=== PATIENT | female | born 1960 | race Caucasian/White ===

== ENCOUNTER 2016-12-04 16:29 | Inpatient (IN) | payer MEDICARE, MEDICAID ==
[~2016-12-04] VITALS: Ht 157.4 cm; Wt 88.0 kg
--- NOTE | ~2016-12-04 | CON ---
[place], [place] REPORT OF CONSULTATION NAME: SUHAIL LEIGH UNIT #: [id number] ROOM: 512 DOCTOR: OBINNA PINO MD BIRTHDATE: [birth year] DOS: 12/05/2016 HISTORY OF PRESENT ILLNESS: This is a 56-year-old -[place] woman with a history of morbid obesity; essential hypertension, but has not taken any medications; depression; Kraft's palsy with complete recovery; osteoarthritis; allegedly mitral valve prolapse, however, an echo read by Dr. Pina did not see this abnormality; and ovarian cancer. She has never had a stroke, heart attack, heart failure, COPD or GI bleeding. She has had bilateral knee replacement, cochlear implant, D and C and later total hysterectomy. She smokes about a pack of cigarettes per day. No alcohol. She is and lives with her . She came to the hospital yesterday because of tingling in her arms and all of her fingers. She also had tingling and numbness of the lips, but not of the tongue. Tongue did not feel swollen. She had no tingling in the toes; however, she saw floaters in front of her eyes, head felt light and she had difficulty breathing and also had some vague chest pain. These symptoms started while she was reading for her exam and she felt rather stressed out while reading the books. She has never had any PND, orthopnea or swelling of the lower extremities or exertional pain previously. HOME MEDICATIONS: Albuterol aerosol treatments, fluticasone nasal spray, omeprazole 40 daily, risperidone 15 mg b.i.d. ropinirole/Requip 4 mg b.i.d., simvastatin 40 daily, trazodone 100 mg at bedtime, vilazodone 40 mg daily, and cetirizine 10 mg daily. PHYSICAL EXAMINATION: GENERAL: This is a patient who is moderately obese. She is very pleasant, alert. She is very comfortable. She does not seem to be anxious. There is no thyromegaly or finger clubbing. She is not jaundiced. VITAL SIGNS: Temperature is normal. Pulse is 76 and regular, blood pressure 140/57. NECK: Normal JVP. No bruit in the neck. HEART: There is no cardiomegaly. No murmurs are present. EXTREMITIES: Good pedal pulses and no edema in the lower extremities. RESPIRATORY SYSTEM: She is not tachypneic. RESPIRATORY: Breath sounds are mildly diminished with no adventitious sounds. ABDOMEN: Rather large and supple. DIAGNOSTIC STUDIES: An ECG demonstrated normal sinus rhythm at 71 beats per minute and a nonspecific T wave in the anterior chest leads. Lab is unremarkable. Hemoglobin 13.7 g/dL, normal electrolytes and normal renal function. Troponin was normal, total CK 58. I suspected a hypoventilation syndrome due to acute stress induced by preparation for examination. I had her hyperventilated for a minute or so and her symptoms in the arms and fingers got worse i.e., worsening of tingling and she started seeing floaters in front of her eyes and lips became ____ more numb. [place], [place] REPORT OF CONSULTATION NAME: SUHAIL LEIGH UNIT #: [id number] ROOM: 512 DOCTOR: OBINNA PINO MD BIRTHDATE: [birth year] IMPRESSION: This patient had acute anxiety/stress caused by preparation for her final exam. She had developed more symptoms that one sees with hyperventilation. I do not recommend any further cardiac workup. I reassured her. I think she probably should start using a paper bag to breathe into when she has symptoms. I thank you on behalf of Dr. Pina for this consult. OBINNA PINO MD CM:CONSTR:REPORT OF CONSULTATION [id number] 12/06/16 0555 interface
[~2016-12-04 16:29] MED LIST: ALBUTEROL2.5 MG/0.5 INH; AMOXIL500 MG PO; ANAPROX DS550 MG PO; ANTIVERT/2525 MG PO; CARAFATE1 G1 PO; ESTRADIOL0.05 MG/24 TD; ETODOLAC400 MG PO; FLEXERIL10 MG PO; FLUTICASON0.05 MG/AC NAS; HYDROCODONE BIT1 T11 PO; KLONOPIN1 MG PO; LEXAPRO10 MG PO; MELOXICAM15 MG PO; PERCOCET 325 MG1 TA2 PO; PERCOCET 325 MG1 TA5 PO; PRILOSEC; PRILOSEC40 MG PO; RANITIDINE HCL300 M2 PO; REQUIP0.25 MG PO; RISPERIDONE0.5 MG PO; ROPINIROLE HY0.25 MG PO; SIMVASTATIN40 MG PO; TOBREX OPHTH S2.5 ML OPH; TRAMADOL HCL50 MG PO; TRAMADOL50 MG PO; TRAZODONE100 MG PO; VICODIN ES 7501 TAB PO; VIIBRYD40 PO; WELLBUTRIN SR150 MG PO; [UNRECOGNIZED DRUG - REMARK]
[2016-12-04 16:38] VITALS: BP 144/82
[2016-12-04 17:20] LABS: BASO % 0.4 % (0.0-1.0); EOS # 0.1 10*3/uL (0.0-0.4); EOS % 1.1 % (1.0-4.0); HEMATOCRIT 41.3 % (37.0-47.0); HEMOGLOBIN 14.3 g/dl (12.0-16.0); LYMPH # 2.6 10*3/uL (1.3-4.4); LYMPH % 37.3 % (27.0-41.0); MEAN CORPUSCULAR HGB 31.2 pg (27.0-31.0); MEAN CORPUSCULAR HGB CONC 34.6 g/dl (33.0-37.0); MEAN PLATELET VOLUME 10.1 fl (9.6-12.3); MONO # 0.4 10*3/uL (0.1-1.0); MONO % 5.6 % (3.0-9.0); NEUT # 3.9 10*3/uL (2.3-7.9); NEUT % 55.5 % (47.0-73.0); PLATELET COUNT AUTOMATED 265 10*3/uL (130-400); RED BLOOD COUNT 4.59 10*6/uL (4.10-5.10); RED CELL DISTRI WIDTH 12.8 % (0-14.5)
[2016-12-04 17:28] LABS: PROTHROMBIN TIME 10.5 SECONDS (9.0-12.4)
[2016-12-04 17:33] LABS: BILIRUBIN NEGATIVE (NEGATIVE); BLOOD NEGATIVE (NEGATIVE); CLARITY CLEAR (CLEAR); COLOR YELLOW (YELLOW); GLUCOSE NEGATIVE (NEGATIVE); KETONE NEGATIVE (NEGATIVE); LEUKO ESTERASE NEGATIVE (NEGATIVE); NITRITE NEGATIVE (NEGATIVE); PH 6.5 (5.0-9.0); PROTEIN NEGATIVE (NEGATIVE); SPECIFIC GRAVITY <= 1.005 (1.005-1.030); UROBILINOGEN 0.2 E.U./dl (0.2-1.0)
[2016-12-04 17:37] LABS: ALKALINE PHOSPHATASE 79 U/L (45-117); BILIRUBIN, TOTAL 0.4 mg/dl (0.2-1.0); BUN 8 mg/dl (7-24); CARBON DIOXIDE 29 mmol/L (21-32); CHLORIDE 107 mmol/L (98-107); CKMB 1.6 ng/ml (0.5-3.6); CPK 76 U/L (26-192); EST GLOM FILT AFRICAN AMERICAN > 60 ml/min; GLUCOSE 87 mg/dL (65-99); LDH 203 U/L (84-246); MAGNESIUM 2.1 mg/dL (1.5-2.1); POTASSIUM 3.1 mmol/L (3.5-5.1); SGOT/AST 17 IU/L (3-35); SGPT/ALT 25 U/L (12-78); SODIUM 142 mmol/L (136-145); TOTAL PROTEIN 7.6 gm/dL (6.4-8.2); TROPONIN I < 0.015 ng/ml (<0.045)
[2016-12-04 17:40] LABS: RBC 0-2 rbc/hpf (0-2); URINE REFLEX COMMENT NO (NO); WBC 0-2 wbc/hpf (0-5)
[2016-12-04 19:10] VITALS: BP 134/80
[2016-12-04 21:00] VITALS: BP 152/74
[2016-12-04] MEDS ORDERED: ALLERGY RELIEF10 M3 PO (21:20)
[2016-12-04] MEDS ORDERED: REQUIP0.25 M1 PO ×2 (22:44→22:46)
[2016-12-04] MEDS ORDERED: RISPERIDONE0.5 MG PO (22:47)
[2016-12-04] MEDS ORDERED: REQUIP4 MG PO (22:48)
[2016-12-05] VITALS: BP 129/75
[2016-12-05 00:47] LABS: CKMB 1.4 ng/ml (0.5-3.6); CPK 67 U/L (26-192)
[2016-12-05 00:48] LABS: TROPONIN I < 0.015 ng/ml (<0.045)
[2016-12-05 05:46] LABS: BUN 13 mg/dl (7-24); CARBON DIOXIDE 27 mmol/L (21-32); CHLORIDE 108 mmol/L (98-107); EST GLOM FILT AFRICAN AMERICAN > 60 ml/min; GLUCOSE 104 mg/dL (65-99); MAGNESIUM 2.1 mg/dL (1.5-2.1); POTASSIUM 3.6 mmol/L (3.5-5.1); SODIUM 145 mmol/L (136-145)
[2016-12-05 05:50] LABS: CHOLESTEROL 136 mg/dL (<200); FREE T4 1.37 ng/dl (0.76-1.46); HDL CHOLESTEROL 42 mg/dl (40-60); LDL CHOLESTEROL 73 mg/dL (9-159); PHOSPHOROUS 4.2 mg/dL (2.5-4.9); TRIGLYCERIDES 103 mg/dl (<150); VLDL CHOLESTEROL 21 mg/dL (6-40)
[2016-12-05 05:50] LABS: CKMB 1.1 ng/ml (0.5-3.6); CPK 58 U/L (26-192)
[2016-12-05 05:52] LABS: TROPONIN I < 0.015 ng/ml (<0.045)
[2016-12-05 05:57] LABS: THYROID STIM HORMONE (HS) 0.525 uIU/ml (0.358-4.75)
[2016-12-05 05:58] LABS: BASO % 0.5 % (0.0-1.0); EOS # 0.2 10*3/uL (0.0-0.4); EOS % 2.6 % (1.0-4.0); HEMATOCRIT 40.1 % (37.0-47.0); HEMOGLOBIN 13.7 g/dl (12.0-16.0); LYMPH # 2.3 10*3/uL (1.3-4.4); LYMPH % 27.1 % (27.0-41.0); MEAN CELL VOLUME 91.8 fl (81.0-99.0); MEAN CORPUSCULAR HGB 31.4 pg (27.0-31.0); MEAN CORPUSCULAR HGB CONC 34.2 g/dl (33.0-37.0); MEAN PLATELET VOLUME 10.2 fl (9.6-12.3); MONO # 0.5 10*3/uL (0.1-1.0); MONO % 5.4 % (3.0-9.0); NEUT # 5.4 10*3/uL (2.3-7.9); NEUT % 64.2 % (47.0-73.0); PLATELET COUNT AUTOMATED 272 10*3/uL (130-400); RED BLOOD COUNT 4.37 10*6/uL (4.10-5.10); RED CELL DISTRI WIDTH 12.9 % (0-14.5); WHITE BLOOD COUNT 8.4 10*3/uL (4.8-10.8)
[2016-12-05 06:00] LABS: HEMOGLOBIN A1c 5.7 % (4.8-5.6)
[2016-12-05 08:00] VITALS: BP 130/64
[2016-12-05 12:00] VITALS: BP 142/74
[2016-12-05 16:00] VITALS: BP 140/57
[2016-12-05 20:00] VITALS: BP 141/61
[2016-12-06] VITALS: BP 141/68
[2016-12-06 08:00] VITALS: BP 136/76
[2016-12-06] MEDS ORDERED: D-1000 185 MG-11 TAB PO (11:00)
== END 2016-12-06 13:18 | disposition home or self-care (01) | DRG 880 ==
LOC: ED 16:29 → EDHOLD 20:04 → 5E 20:04
PROVIDERS: Physician Assistant; Student in an Organized Health Care Education/Training Program
DX: F41.9 Anxiety disorder, unspecified (principal); I10 Essential (primary) hypertension; E87.6 Hypokalemia; F17.200 Nicotine dependence, unspecified, uncomplicated; E78.5 Hyperlipidemia, unspecified; I34.1 Nonrheumatic mitral (valve) prolapse; M19.90 Unspecified osteoarthritis, unspecified site; Z96.653 Presence of artificial knee joint, bilateral; F32.9 Major depressive disorder, single episode, unspecified; Z71.6 Tobacco abuse counseling; Z90.710 Acquired absence of both cervix and uterus; Z80.8 Family history of malignant neoplasm of other organs or systems; Z84.89 Family history of other specified conditions; Z79.51 Long term (current) use of inhaled steroids; Z79.899 Other long term (current) drug therapy; Z79.1 Long term (current) use of non-steroidal anti-inflammatories (NSAID)

== ENCOUNTER → 2017-03-07 | Outpatient (CLI) | payer MEDICARE, MEDICAID ==
[~2017-03-07] MED LIST changes: +ALLERGY RELIEF10 M3 PO; +D-1000 185 MG-11 TAB PO; +REQUIP0.25 M1 PO; +REQUIP4 MG PO
== END | disposition home or self-care (01) ==
LOC: MAMMO 10:48
DX: Z12.31 Encounter for screening mammogram for malignant neoplasm of breast (principal)

== ENCOUNTER → 2017-05-07 | Outpatient (CLI) | payer MEDICARE, MEDICAID | END | disposition home or self-care (01) | LOC: LAB 15:59 | DX: D64.9 Anemia, unspecified (principal); R53.83 Other fatigue ==

== ENCOUNTER → 2017-11-05 | Outpatient (CLI) | payer MEDICARE, MEDICAID | END | disposition home or self-care (01) | LOC: US 15:37 | DX: R10.30 Lower abdominal pain, unspecified (principal); Z85.43 Personal history of malignant neoplasm of ovary ==

== ENCOUNTER 2018-01-30 13:58 | Emergency (ER) | payer MEDICARE, MEDICAID ==
[~2018-01-30] VITALS: Ht 160 cm; Wt 94.3 kg
[2018-01-30] MEDS ORDERED: IRON325 M1 PO (14:10)
[2018-01-30] MEDS ORDERED: VRAYLAR3 MG PO (14:11)
== END 2018-01-30 15:00 | disposition home or self-care (01) ==
LOC: ED 13:58
DX: T15.11XA Foreign body in conjunctival sac, right eye, initial encounter (principal); E78.5 Hyperlipidemia, unspecified; M19.90 Unspecified osteoarthritis, unspecified site; F17.200 Nicotine dependence, unspecified, uncomplicated; F12.90 Cannabis use, unspecified, uncomplicated; Z96.653 Presence of artificial knee joint, bilateral; Z90.710 Acquired absence of both cervix and uterus; Z98.890 Other specified postprocedural states; Z98.51 Tubal ligation status; Z79.899 Other long term (current) drug therapy; X58.XXXA Exposure to other specified factors, initial encounter; Y93.89 Activity, other specified; Y92.89 Other specified places as the place of occurrence of the external cause; Y99.9 Unspecified external cause status

== ENCOUNTER → 2018-03-17 | Outpatient (CLI) | payer MEDICARE, MEDICAID ==
[~2018-03-17] MED LIST changes: +IRON325 M1 PO; +VRAYLAR3 MG PO
== END ==
LOC: US 12:30
DX: C57.8 Malignant neoplasm of overlapping sites of female genital organs (principal); R10.32 Left lower quadrant pain; Z90.710 Acquired absence of both cervix and uterus; Z90.5 Acquired absence of kidney

== ENCOUNTER 2018-10-20 13:06 | Emergency (ER) | payer MEDICARE, MEDICAID ==
[~2018-10-20] VITALS: Ht 157.4 cm; Wt 92.1 kg
[~2018-10-20 13:06] MED LIST changes: +CILOXAN 5 ML5 ML OPH; +OMNICEF300 MG PO
[2018-10-20 13:46] LABS: BASO # 0.1 10*3/uL (0.0-0.1); BASO % 0.7 % (0.0-1.0); EOS # 0.1 10*3/uL (0.0-0.4); EOS % 1.2 % (1.0-4.0); HEMOGLOBIN 14.1 g/dl (12.0-16.0); LYMPH # 2.1 10*3/uL (1.3-4.4); LYMPH % 29.3 % (27.0-41.0); MEAN CELL VOLUME 90.7 fl (81.0-99.0); MEAN CORPUSCULAR HGB CONC 35.3 g/dl (33.0-37.0); MEAN PLATELET VOLUME 10.1 fl (9.6-12.3); MONO # 0.4 10*3/uL (0.1-1.0); MONO % 5.5 % (3.0-9.0); NEUT # 4.6 10*3/uL (2.3-7.9); PLATELET COUNT AUTOMATED 230 10*3/uL (130-400); RED BLOOD COUNT 4.41 10*6/uL (4.10-5.10); RED CELL DISTRI WIDTH 12.3 % (0-14.5); WHITE BLOOD COUNT 7.2 10*3/uL (4.8-10.8)
[2018-10-20 14:15] LABS: ALBUMIN 3.9 gm/dl (3.1-4.5); ALKALINE PHOSPHATASE 80 U/L (45-117); BUN 13 mg/dl (7-24); CHLORIDE 107 mmol/L (98-107); CREATININE 0.79 mg/dL (0.55-1.02); POTASSIUM 3.3 mmol/L (3.5-5.1); SGOT/AST 27 IU/L (3-35); SGPT/ALT 38 U/L (12-78); SODIUM 142 mmol/L (136-145); TOTAL PROTEIN 7.5 gm/dL (6.4-8.2)
[2018-10-20] MEDS ORDERED: PREDNISONE50 MG PO (15:21)
[2018-10-20] MEDS ORDERED: ZITHROMAX250 MG PO (15:21)
== END 2018-10-20 15:30 | disposition home or self-care (01) ==
LOC: ED 13:06
PROVIDERS: Nurse Practitioner Family
DX: J20.9 Acute bronchitis, unspecified (principal); F17.200 Nicotine dependence, unspecified, uncomplicated; Z79.899 Other long term (current) drug therapy; Z90.710 Acquired absence of both cervix and uterus

== ENCOUNTER → 2019-01-10 | Outpatient (CLI) | payer MEDICARE, MEDICAID ==
[~2019-01-10] MED LIST changes: +MEDROL DOSEPAK4 MG PO; +PREDNISONE50 MG PO; +ZITHROMAX250 MG PO
[2019-01-10 15:31] LABS: BASO % 0.4 % (0.0-1.0); EOS # 0.1 10*3/uL (0.0-0.4); EOS % 1.6 % (1.0-4.0); HEMATOCRIT 44.4 % (37.0-47.0); HEMOGLOBIN 14.8 g/dl (12.0-16.0); LYMPH # 2.2 10*3/uL (1.3-4.4); LYMPH % 30.7 % (27.0-41.0); MEAN CELL VOLUME 96.7 fl (81.0-99.0); MEAN CORPUSCULAR HGB 32.2 pg (27.0-31.0); MEAN CORPUSCULAR HGB CONC 33.3 g/dl (33.0-37.0); MEAN PLATELET VOLUME 10.3 fl (9.6-12.3); MONO # 0.3 10*3/uL (0.1-1.0); MONO % 4.1 % (3.0-9.0); NEUT # 4.4 10*3/uL (2.3-7.9); NEUT % 63.1 % (47.0-73.0); PLATELET COUNT AUTOMATED 250 10*3/uL (130-400); RED BLOOD COUNT 4.59 10*6/uL (4.10-5.10); RED CELL DISTRI WIDTH 12.5 % (0-14.5)
[2019-01-10 16:00] LABS: ALBUMIN 3.8 gm/dl (3.1-4.5); ALKALINE PHOSPHATASE 84 U/L (45-117); BUN 13 mg/dl (7-24); CHLORIDE 107 mmol/L (98-107); CHOLESTEROL 127 mg/dL (<200); HDL CHOLESTEROL 36 mg/dl (40-60); LDL CHOLESTEROL 59 mg/dL (9-159); SGOT/AST 19 IU/L (3-35); SGPT/ALT 33 U/L (12-78); SODIUM 143 mmol/L (136-145); TOTAL PROTEIN 7.5 gm/dL (6.4-8.2); TRIGLYCERIDES 162 mg/dl (<150); VLDL CHOLESTEROL 32 mg/dL (6-40)
[2019-01-10 16:07] LABS: THYROID STIM HORMONE (HS) 0.482 uIU/ml (0.358-4.75)
== END | disposition home or self-care (01) ==
LOC: LAB 14:34
PROVIDERS: Family Medicine
DX: E78.00 Pure hypercholesterolemia, unspecified (principal); F39 Unspecified mood [affective] disorder; R03.0 Elevated blood-pressure reading, without diagnosis of hypertension

== ENCOUNTER → 2019-01-14 | Outpatient (CLI) | payer MEDICARE, MEDICAID | END | disposition home or self-care (01) | LOC: US 09:48 | DX: K76.0 Fatty (change of) liver, not elsewhere classified (principal) ==

== ENCOUNTER 2019-03-18 15:22 | Emergency (ER) | payer MEDICARE, MEDICAID ==
[~2019-03-18] VITALS: Ht 157.4 cm; Wt 92.5 kg
[~2019-03-18 15:22] MED LIST changes: -MEDROL DOSEPAK4 MG PO
[2019-03-18 17:43] LABS: BILIRUBIN NEGATIVE (NEGATIVE); BLOOD NEGATIVE (NEGATIVE); CLARITY CLEAR (CLEAR); COLOR YELLOW (YELLOW); GLUCOSE NEGATIVE (NEGATIVE); KETONE NEGATIVE (NEGATIVE); LEUKO ESTERASE NEGATIVE (NEGATIVE); NITRITE NEGATIVE (NEGATIVE); UROBILINOGEN 0.2 E.U./dl (0.2-1.0)
[2019-03-18 18:19] LABS: BACTERIA 1+
[2019-03-18] MEDS ORDERED: MEDROL DOSEPAK4 MG PO (18:34)
== END 2019-03-18 18:45 | disposition home or self-care (01) ==
LOC: ED 15:22
PROVIDERS: Physician Assistant
DX: M54.16 Radiculopathy, lumbar region (principal); R30.0 Dysuria; H57.89 Other specified disorders of eye and adnexa; K21.9 Gastro-esophageal reflux disease without esophagitis; F17.200 Nicotine dependence, unspecified, uncomplicated; Z79.899 Other long term (current) drug therapy; Z90.710 Acquired absence of both cervix and uterus

== ENCOUNTER → 2019-04-14 | Outpatient (CLI) | payer MEDICARE, MEDICAID ==
[~2019-04-14] MED LIST changes: +MEDROL DOSEPAK4 MG PO
== END | disposition home or self-care (01) ==
LOC: LAB 12:57
DX: M43.17 Spondylolisthesis, lumbosacral region (principal); R73.9 Hyperglycemia, unspecified; M51.27 Other intervertebral disc displacement, lumbosacral region

== ENCOUNTER → 2019-06-09 | Outpatient (CLI) | payer MEDICARE, MEDICAID | END | disposition home or self-care (01) | LOC: D 14:01 | DX: K76.0 Fatty (change of) liver, not elsewhere classified (principal); K21.0 Gastro-esophageal reflux disease with esophagitis; E78.6 Lipoprotein deficiency ==

== ENCOUNTER 2019-08-21 17:00 | Emergency (ER) | payer MEDICARE, MEDICAID ==
[~2019-08-21] VITALS: Ht 157.4 cm; Wt 90.7 kg
[2019-08-21] MEDS ORDERED: ZITHROMAX250 MG PO (18:42)
[2019-08-21] MEDS ORDERED: PREDNISONE50 MG PO (18:42)
== END 2019-08-21 18:42 | disposition home or self-care (01) ==
LOC: ED 17:00
DX: J20.9 Acute bronchitis, unspecified (principal); H92.03 Otalgia, bilateral; E78.00 Pure hypercholesterolemia, unspecified; F17.200 Nicotine dependence, unspecified, uncomplicated; Z79.899 Other long term (current) drug therapy

== ENCOUNTER → 2019-10-15 | Outpatient (CLI) | payer MEDICARE, MEDICAID | END | disposition home or self-care (01) | LOC: RAD 12:05 | DX: M19.011 Primary osteoarthritis, right shoulder (principal) ==

== ENCOUNTER → 2020-02-04 | Outpatient (CLI) | payer MEDICARE, MEDICAID ==
[2020-02-04 13:32] LABS: BILIRUBIN NEGATIVE (NEGATIVE); BLOOD NEGATIVE (NEGATIVE); CLARITY CLEAR (CLEAR); COLOR YELLOW (YELLOW); GLUCOSE NEGATIVE (NEGATIVE); KETONE NEGATIVE (NEGATIVE)
[2020-02-04 13:33] LABS: LEUKO ESTERASE NEGATIVE (NEGATIVE); NITRITE NEGATIVE (NEGATIVE); RBC 0-2 rbc/hpf (0-2); UROBILINOGEN 0.2 E.U./dl (0.2-1.0); WBC 0-2 wbc/hpf (0-5)
== END | disposition home or self-care (01) ==
LOC: LAB 12:34
PROVIDERS: Family Medicine
DX: N30.00 Acute cystitis without hematuria (principal); M25.551 Pain in right hip

== ENCOUNTER → 2020-05-09 | Outpatient (CLI) | payer MEDICARE, MEDICAID ==
[~2020-05-09] MED LIST changes: +DOXEPIN25 MG PO; +PROTONIX40 MG PO
== END | disposition home or self-care (01) ==
LOC: COVID19 05-06 00:22
PROVIDERS: ATTEND Internal Medicine Gastroenterology
DX: Z20.828 Contact with and (suspected) exposure to other viral communicable diseases (principal)

== ENCOUNTER → 2020-05-13 | Day surgery (SDC) | payer MEDICARE, MEDICAID ==
[~2020-05-13] VITALS: Ht 157.4 cm; Wt 89.4 kg
[2020-05-13 07:36] VITALS: BP 145/66
[2020-05-13 08:41] VITALS: BP 134/70
[2020-05-13 08:56] VITALS: BP 129/72
[2020-05-13 09:11] VITALS: BP 130/68
== END | disposition home or self-care (01) ==
LOC: SDC 05-09 12:30
PROVIDERS: ATTEND Internal Medicine Gastroenterology
DX: Z12.11 Encounter for screening for malignant neoplasm of colon (principal); J44.9 Chronic obstructive pulmonary disease, unspecified; K63.5 Polyp of colon; F41.9 Anxiety disorder, unspecified; F32.9 Major depressive disorder, single episode, unspecified; K30 Functional dyspepsia; K21.9 Gastro-esophageal reflux disease without esophagitis; I10 Essential (primary) hypertension; G47.30 Sleep apnea, unspecified; E78.00 Pure hypercholesterolemia, unspecified; K64.8 Other hemorrhoids; E66.9 Obesity, unspecified; Z68.36 Body mass index [BMI] 36.0-36.9, adult; Z87.891 Personal history of nicotine dependence; Z79.899 Other long term (current) drug therapy; Z83.3 Family history of diabetes mellitus; Z82.49 Family history of ischemic heart disease and other diseases of the circulatory system

== ENCOUNTER → 2020-06-02 | Outpatient (CLI) | payer MEDICARE, MEDICAID ==
[2020-06-02 13:55] LABS: BASO % 0.4 % (0.0-1.0); EOS # 0.1 10*3/uL (0.0-0.4); EOS % 0.8 % (1.0-4.0); HEMATOCRIT 41.7 % (37.0-47.0); LYMPH # 2.6 10*3/uL (1.3-4.4); LYMPH % 36.3 % (27.0-41.0); MEAN CELL VOLUME 95.9 fl (81.0-99.0); MEAN CORPUSCULAR HGB 31.3 pg (27.0-31.0); MEAN CORPUSCULAR HGB CONC 32.6 g/dl (33.0-37.0); MEAN PLATELET VOLUME 10.9 fl (9.6-12.3); MONO # 0.5 10*3/uL (0.1-1.0); MONO % 6.8 % (3.0-9.0); NEUT % 55.6 % (47.0-73.0); PLATELET COUNT AUTOMATED 274 10*3/uL (130-400); RED BLOOD COUNT 4.35 10*6/uL (4.10-5.10); RED CELL DISTRI WIDTH 12.6 % (0-14.5); WHITE BLOOD COUNT 7.2 10*3/uL (4.8-10.8)
[2020-06-02 14:22] LABS: ALBUMIN 3.6 gm/dl (3.1-4.5); ALKALINE PHOSPHATASE 63 U/L (45-117); BUN 12 mg/dl (7-24); CHLORIDE 109 mmol/L (98-107); CHOLESTEROL 140 mg/dL (<200); CREATININE 0.92 mg/dL (0.55-1.02); HDL CHOLESTEROL 40 mg/dl (40-60); LDL CHOLESTEROL 72 mg/dL (9-159); POTASSIUM 4.6 mmol/L (3.5-5.1); SGOT/AST 13 IU/L (3-35); SGPT/ALT 17 U/L (12-78); SODIUM 143 mmol/L (136-145); TOTAL PROTEIN 7.1 gm/dL (6.4-8.2); TRIGLYCERIDES 141 mg/dl (<150); VLDL CHOLESTEROL 28 mg/dL (6-40)
== END | disposition home or self-care (01) ==
LOC: LAB 13:02
PROVIDERS: Family Medicine; ATTEND Nurse Practitioner Family
DX: R76.0 Raised antibody titer (principal); R53.83 Other fatigue; E78.2 Mixed hyperlipidemia

== ENCOUNTER → 2020-09-13 | Outpatient (CLI) | payer MEDICARE, MEDICAID | END | disposition home or self-care (01) | LOC: US 08-09 00:37 | PROVIDERS: ATTEND Nurse Practitioner Family | DX: K76.0 Fatty (change of) liver, not elsewhere classified (principal) ==

== ENCOUNTER → 2020-10-03 | Outpatient (CLI) | payer MEDICARE, MEDICAID ==
[2020-10-03 15:35] LABS: BILIRUBIN Negative (Negative); BLOOD Negative (Negative); CLARITY Clear (Clear); COLOR Yellow (Yellow); GLUCOSE Negative (Negative); KETONE Negative (Negative); LEUKO ESTERASE Negative (Negative); NITRITE Negative (Negative); PH 5.5 (4.5-8.0); SPECIFIC GRAVITY 1.015 (1.001-1.030); UROBILINOGEN 0.2 E.U./dl (0.0-1.0)
[2020-10-03 16:00] LABS: EPITHELIAL CELLS 0-2
== END | disposition home or self-care (01) ==
LOC: LAB 14:32
PROVIDERS: ATTEND Family Medicine
DX: N30.00 Acute cystitis without hematuria (principal); R10.30 Lower abdominal pain, unspecified

== ENCOUNTER → 2021-01-03 | Outpatient (CLI) | payer MEDICARE, MEDICAID ==
[2021-01-03 14:17] LABS: BILIRUBIN Negative (Negative); BLOOD Trace-Lysed (Negative); CLARITY Clear (Clear); COLOR Yellow (Yellow); GLUCOSE Negative (Negative); KETONE Negative (Negative); LEUKO ESTERASE 2+ (Negative); NITRITE Negative (Negative); PH 5.5 (4.5-8.0)
[2021-01-03 14:39] LABS: BACTERIA TRACE; MUCOUS 1+; WBC 51-100 wbc/hpf (0-5)
== END | disposition home or self-care (01) ==
LOC: LAB 13:55
PROVIDERS: ATTEND Family Medicine
DX: N30.00 Acute cystitis without hematuria (principal)

== ENCOUNTER 2021-05-05 23:53 | Emergency (ER) | payer MEDICARE, MEDICAID ==
[~2021-05-05] VITALS: Ht 157.4 cm; Wt 96.2 kg
[2021-05-06 00:06] LABS: BASO % 0.3 % (0.0-1.0); EOS # 0.1 10*3/uL (0.0-0.4); EOS % 0.6 % (1.0-4.0); HEMATOCRIT 39.9 % (37.0-47.0); LYMPH # 2.5 10*3/uL (1.3-4.4); LYMPH % 23.1 % (27.0-41.0); MEAN CELL VOLUME 92.1 fl (81.0-99.0); MEAN CORPUSCULAR HGB 30.9 pg (27.0-31.0); MEAN CORPUSCULAR HGB CONC 33.6 g/dl (33.0-37.0); MEAN PLATELET VOLUME 10.2 fl (9.6-12.3); MONO # 0.5 10*3/uL (0.1-1.0); MONO % 4.1 % (3.0-9.0); NEUT # 7.8 10*3/uL (2.3-7.9); NEUT % 71.6 % (47.0-73.0); PLATELET COUNT AUTOMATED 312 10*3/uL (130-400); RED BLOOD COUNT 4.33 10*6/uL (4.10-5.10); RED CELL DISTRI WIDTH 12.1 % (0-14.5); WHITE BLOOD COUNT 10.9 10*3/uL (4.8-10.8)
[2021-05-06 00:27] LABS: ALBUMIN 3.4 gm/dl (3.1-4.5); ALKALINE PHOSPHATASE 74 U/L (45-117); BUN 20 mg/dl (7-24); CHLORIDE 110 mmol/L (98-107); CREATININE 1.02 mg/dL (0.55-1.02); POTASSIUM 3.9 mmol/L (3.5-5.1); SGOT/AST 17 IU/L (3-35); SGPT/ALT 27 U/L (12-78); SODIUM 141 mmol/L (136-145)
== END 2021-05-06 01:20 | disposition home or self-care (01) ==
LOC: ED 23:53
PROVIDERS: Internal Medicine
DX: B34.9 Viral infection, unspecified (principal); Z20.822 Contact with and (suspected) exposure to COVID-19; R06.00 Dyspnea, unspecified; F17.200 Nicotine dependence, unspecified, uncomplicated; Z79.899 Other long term (current) drug therapy

== ENCOUNTER → 2021-09-27 | Outpatient (CLI) | payer MEDICARE, MEDICAID | END | disposition home or self-care (01) | LOC: US 09-11 09:00 | PROVIDERS: ATTEND Family Medicine | DX: R10.11 Right upper quadrant pain (principal); K76.0 Fatty (change of) liver, not elsewhere classified ==

== ENCOUNTER 2022-03-05 03:55 | Emergency (ER) | payer MEDICARE, MEDICAID ==
[~2022-03-05] VITALS: Ht 157.4 cm; Wt 100.7 kg
[2022-03-05] MEDS ORDERED: CRESTOR10 M1 PO (04:07)
[2022-03-05] MEDS ORDERED: NORVASC5 MG PO (04:07)
[2022-03-05] MEDS ORDERED: SYMB160 INH (04:07)
[2022-03-05] MEDS ORDERED: PERCOCET 10-321 EACH PO (04:08)
[2022-03-05] MEDS ORDERED: INCRUSE ELLI62.5 MCG INH (04:08)
[2022-03-05] MEDS ORDERED: REMERON15 M2 PO (04:09)
[2022-03-05] MEDS ORDERED: VISTARIL50 MG PO (04:10)
[2022-03-05 04:18] LABS: BASO % 0.2 % (0.0-1.0); EOS # 0.1 10*3/uL (0.0-0.4); EOS % 0.7 % (1.0-4.0); HEMATOCRIT 40.7 % (37.0-47.0); LYMPH # 2.9 10*3/uL (1.3-4.4); LYMPH % 16.5 % (27.0-41.0); MEAN CELL VOLUME 88.5 fl (81.0-99.0); MEAN CORPUSCULAR HGB 29.8 pg (27.0-31.0); MEAN CORPUSCULAR HGB CONC 33.7 g/dl (33.0-37.0); MEAN PLATELET VOLUME 9.6 fl (9.6-12.3); MONO # 0.4 10*3/uL (0.1-1.0); MONO % 2.5 % (3.0-9.0); NEUT # 13.8 10*3/uL (2.3-7.9); NEUT % 79.7 % (47.0-73.0); PLATELET COUNT AUTOMATED 303 10*3/uL (130-400); RED CELL DISTRI WIDTH 13.2 % (0-14.5); WHITE BLOOD COUNT 17.4 10*3/uL (4.8-10.8)
[2022-03-05 04:33] LABS: CREATININE 1.15 mg/dL (0.55-1.02); POTASSIUM 3.5 mmol/L (3.5-5.1); TOTAL PROTEIN 7.2 gm/dL (6.4-8.2)
== END 2022-03-05 06:56 | disposition home or self-care (01) ==
LOC: ED 03:55
PROVIDERS: Internal Medicine
DX: G47.33 Obstructive sleep apnea (adult) (pediatric) (principal); D72.829 Elevated white blood cell count, unspecified; F41.9 Anxiety disorder, unspecified; Z79.899 Other long term (current) drug therapy; Z90.710 Acquired absence of both cervix and uterus; Z98.890 Other specified postprocedural states; Z87.891 Personal history of nicotine dependence; Z98.51 Tubal ligation status

== ENCOUNTER → 2022-03-08 | Outpatient (CLI) | payer OTHER, MEDICAID ==
[~2022-03-08] MED LIST changes: +CRESTOR10 M1 PO; +INCRUSE ELLI62.5 MCG INH; +NORVASC5 MG PO; +PERCOCET 10-321 EACH PO; +REMERON15 M2 PO; +SYMB160 INH; +VISTARIL50 MG PO
[2022-03-08 15:25] LABS: CREATININE 0.94 mg/dL (0.55-1.02)
== END | disposition home or self-care (01) ==
LOC: LAB 14:29
PROVIDERS: ATTEND Surgery
DX: M79.9 Soft tissue disorder, unspecified (principal)

== ENCOUNTER → 2022-03-09 | Outpatient (CLI) | payer OTHER, MEDICAID | END | disposition home or self-care (01) | LOC: CT 01:17 | PROVIDERS: ATTEND Surgery | DX: K46.9 Unspecified abdominal hernia without obstruction or gangrene (principal); M47.817 Spondylosis without myelopathy or radiculopathy, lumbosacral region; M79.9 Soft tissue disorder, unspecified ==

== ENCOUNTER → 2022-05-03 | Day surgery (SDC) | payer OTHER, MEDICAID ==
[2022-05-01 12:35] VITALS: BP 145/72
[2022-05-03] VITALS (7 sets, daily range): BP systolic 117–160; BP diastolic 62–79
[~2022-05-03] VITALS: Ht 157.4 cm; Wt 98.9 kg
[~2022-05-03] MED LIST changes: +'CLONIDINE0.1 MG PO; +COLACE100 MG PO; +ONDANSETRON HYDR4 M1 PO; +PERCOCET 5-3251 EACH PO; +VRAYLAR6 MG PO
== END | disposition home or self-care (01) ==
LOC: SDC 05-01 12:30
PROVIDERS: ATTEND Surgery
DX: K43.0 Incisional hernia with obstruction, without gangrene (principal); I10 Essential (primary) hypertension; E78.00 Pure hypercholesterolemia, unspecified; K21.9 Gastro-esophageal reflux disease without esophagitis; F41.9 Anxiety disorder, unspecified; F32.9 Major depressive disorder, single episode, unspecified; G43.909 Migraine, unspecified, not intractable, without status migrainosus; J44.9 Chronic obstructive pulmonary disease, unspecified; F17.210 Nicotine dependence, cigarettes, uncomplicated; Z98.890 Other specified postprocedural states; Z85.828 Personal history of other malignant neoplasm of skin; Z85.43 Personal history of malignant neoplasm of ovary; Z90.710 Acquired absence of both cervix and uterus

== ENCOUNTER → 2022-07-30 | Outpatient (CLI) | payer OTHER, MEDICAID | END | disposition home or self-care (01) | LOC: MAMMO 11:00 | PROVIDERS: ATTEND Family Medicine | DX: Z12.31 Encounter for screening mammogram for malignant neoplasm of breast (principal) ==

== ENCOUNTER → 2023-01-10 | Outpatient (CLI) | payer OTHER, MEDICAID ==
[~2023-01-10] MED LIST changes: +CELEXA20 MG PO; +CYCLOBENZAPRINE10 MG PO; +NEURONTIN300 MG PO
== END | disposition home or self-care (01) ==
LOC: RAD 13:54
PROVIDERS: ATTEND Family Medicine
DX: M48.061 Spinal stenosis, lumbar region without neurogenic claudication (principal); M47.816 Spondylosis without myelopathy or radiculopathy, lumbar region; M25.551 Pain in right hip

== ENCOUNTER → 2023-01-15 | Outpatient (CLI) | payer OTHER, MEDICAID | END | disposition home or self-care (01) | LOC: CARD 01:09 | PROVIDERS: ATTEND Internal Medicine Cardiovascular Disease | DX: R07.9 Chest pain, unspecified (principal) ==

== ENCOUNTER → 2023-01-23 | Outpatient (CLI) | payer OTHER, MEDICAID | END | disposition home or self-care (01) | LOC: CARD 09:08 | PROVIDERS: ATTEND Internal Medicine Cardiovascular Disease | DX: R07.9 Chest pain, unspecified (principal) ==

== ENCOUNTER → 2023-01-30 | Outpatient (CLI) | payer MEDICARE, MEDICAID | END | disposition home or self-care (01) | LOC: RAD 10:41 | PROVIDERS: ATTEND Orthopaedic Surgery | DX: M19.041 Primary osteoarthritis, right hand (principal) ==

== ENCOUNTER → 2023-02-14 | Day surgery (SDC) | payer MEDICARE, MEDICAID ==
[~2023-02-14] VITALS: Ht 157.4 cm; Wt 92.1 kg
[2023-02-14 07:40] VITALS: BP 149/73
[2023-02-14 08:16] VITALS: BP 104/49
[2023-02-14 08:30] VITALS: BP 106/53
[2023-02-14 08:46] VITALS: BP 104/54
== END | disposition home or self-care (01) ==
LOC: SDC 02-11 09:30
PROVIDERS: ATTEND Surgery
DX: Z12.11 Encounter for screening for malignant neoplasm of colon (principal); K57.30 Diverticulosis of large intestine without perforation or abscess without bleeding; E78.00 Pure hypercholesterolemia, unspecified; I10 Essential (primary) hypertension; F32.A Depression, unspecified; K21.9 Gastro-esophageal reflux disease without esophagitis; J44.9 Chronic obstructive pulmonary disease, unspecified; F17.210 Nicotine dependence, cigarettes, uncomplicated; Z90.710 Acquired absence of both cervix and uterus; Z98.890 Other specified postprocedural states; M19.90 Unspecified osteoarthritis, unspecified site; Z85.43 Personal history of malignant neoplasm of ovary; Z79.899 Other long term (current) drug therapy

== ENCOUNTER → 2023-02-21 | Day surgery (SDC) | payer MEDICARE, MEDICAID ==
[2023-02-18 13:24] VITALS: BP 166/81
[2023-02-18 14:13] LABS: BUN 12 mg/dl (9-23); CHLORIDE 107 mmol/L (98-107); POTASSIUM 4.1 mmol/L (3.4-5.1)
[~2023-02-21] VITALS: Ht 157.4 cm; Wt 92.1 kg
[~2023-02-21] MED LIST changes: +AMOX-CLAV 875-1 EACH PO; +IBUPROFEN600 MG PO
[2023-02-21 06:51] VITALS: BP 138/49
[2023-02-21 07:58] VITALS: BP 123/62
[2023-02-21 08:10] VITALS: BP 132/73
[2023-02-21 08:28] VITALS: BP 143/74
== END | disposition home or self-care (01) ==
LOC: SDC 02-18 14:00
PROVIDERS: ATTEND Orthopaedic Surgery
DX: M67.441 Ganglion, right hand (principal); M19.041 Primary osteoarthritis, right hand; F32.A Depression, unspecified; E78.00 Pure hypercholesterolemia, unspecified; K21.9 Gastro-esophageal reflux disease without esophagitis; F17.210 Nicotine dependence, cigarettes, uncomplicated; Z90.710 Acquired absence of both cervix and uterus; Z85.828 Personal history of other malignant neoplasm of skin; Z85.43 Personal history of malignant neoplasm of ovary; Z79.899 Other long term (current) drug therapy

== ENCOUNTER 2023-03-06 19:49 | Emergency (ER) | payer MEDICARE, MEDICAID ==
[~2023-03-06] VITALS: Ht 157.4 cm; Wt 72.6 kg
[~2023-03-06 19:49] MED LIST changes: -AMOX-CLAV 875-1 EACH PO; -IBUPROFEN600 MG PO
[2023-03-06] MEDS ORDERED: IBUPROFEN600 MG PO (22:20)
[2023-03-06] MEDS ORDERED: AMOX-CLAV 875-1 EACH PO (22:20)
== END 2023-03-06 23:20 | disposition home or self-care (01) ==
LOC: ED 19:49
DX: S61.412A Laceration without foreign body of left hand, initial encounter (principal); F32.A Depression, unspecified; E78.00 Pure hypercholesterolemia, unspecified; Z96.653 Presence of artificial knee joint, bilateral; Z90.710 Acquired absence of both cervix and uterus; Z98.51 Tubal ligation status; Z98.890 Other specified postprocedural states; F17.200 Nicotine dependence, unspecified, uncomplicated; F12.90 Cannabis use, unspecified, uncomplicated; W54.0XXA Bitten by dog, initial encounter; Y93.89 Activity, other specified; Y92.89 Other specified places as the place of occurrence of the external cause; Y99.8 Other external cause status

== ENCOUNTER → 2023-07-08 | Day surgery (SDC) | payer MEDICARE, MEDICAID ==
[~2023-07-08] VITALS: Ht 157.4 cm; Wt 98.9 kg
[~2023-07-08] MED LIST changes: +AMITRIPTYLINE25 MG PO; +AMOX-CLAV 875-1 EACH PO; +IBUPROFEN600 MG PO
[2023-07-08 07:11] VITALS: BP 141/74
[2023-07-08 07:44] VITALS: BP 115/66
[2023-07-08 07:59] VITALS: BP 124/59
[2023-07-08 08:14] VITALS: BP 131/65
== END | disposition home or self-care (01) ==
LOC: SDC 07-04 08:00
PROVIDERS: ATTEND Surgery
DX: K21.9 Gastro-esophageal reflux disease without esophagitis (principal); K44.9 Diaphragmatic hernia without obstruction or gangrene; K31.A0 Gastric intestinal metaplasia, unspecified; R13.10 Dysphagia, unspecified; K22.70 Barrett's esophagus without dysplasia; M19.90 Unspecified osteoarthritis, unspecified site; F32.A Depression, unspecified; E78.00 Pure hypercholesterolemia, unspecified; F17.210 Nicotine dependence, cigarettes, uncomplicated; Z79.899 Other long term (current) drug therapy; Z96.653 Presence of artificial knee joint, bilateral; Z98.890 Other specified postprocedural states

== ENCOUNTER → 2023-07-31 | Outpatient (CLI) | payer MEDICARE, MEDICAID | END | disposition home or self-care (01) | LOC: ORTHO 00:54 | PROVIDERS: ATTEND Orthopaedic Surgery | DX: M16.11 Unilateral primary osteoarthritis, right hip (principal) ==

== ENCOUNTER → 2023-08-27 | Day surgery (SDC) | payer OTHER, MEDICAID ==
[~2023-08-27] VITALS: Ht 157.4 cm; Wt 95.7 kg
[2023-08-27 06:54] VITALS: BP 172/87
[2023-08-27 07:50] VITALS: BP 160/89
[2023-08-27 07:57] VITALS: BP 152/91
== END | disposition home or self-care (01) ==
LOC: SDC 08-22 03:46
PROVIDERS: ATTEND Orthopaedic Surgery
DX: M25.551 Pain in right hip (principal); M54.50 Low back pain, unspecified; Q76.2 Congenital spondylolisthesis; E78.00 Pure hypercholesterolemia, unspecified; F32.A Depression, unspecified; I34.1 Nonrheumatic mitral (valve) prolapse; Z85.43 Personal history of malignant neoplasm of ovary; M19.90 Unspecified osteoarthritis, unspecified site; K21.9 Gastro-esophageal reflux disease without esophagitis; F17.210 Nicotine dependence, cigarettes, uncomplicated; Z79.899 Other long term (current) drug therapy; Z98.890 Other specified postprocedural states

== ENCOUNTER → 2023-11-14 | Outpatient (CLI) | payer OTHER, MEDICAID | END | disposition home or self-care (01) | LOC: CARD 12:39 | PROVIDERS: ATTEND Internal Medicine Cardiovascular Disease | DX: G47.33 Obstructive sleep apnea (adult) (pediatric) (principal); R06.09 Other forms of dyspnea; I27.20 Pulmonary hypertension, unspecified ==

== ENCOUNTER → 2024-02-03 | Outpatient (CLI) | payer MEDICARE, MEDICAID | LOC: ORTHO 01:01 | PROVIDERS: ATTEND Orthopaedic Surgery | DX: M17.11 Unilateral primary osteoarthritis, right knee (principal); M25.562 Pain in left knee ==

== ENCOUNTER → 2024-02-11 | Day surgery (SDC) | payer MEDICARE, MEDICAID ==
[~2024-02-11] VITALS: Ht 157.4 cm; Wt 95.7 kg
[~2024-02-11] MED LIST changes: +BREO ELLIPTA 11 EACH INH; +BUPIVACAINE 0.25% 10 ML VIAL ONE; +BUPIVACAINE 0.5% 30 ML IV ONE; +Betamethasone ACE/Betamethas 30 MG/5 ML VIAL IJ ONE; +CLARITIN10 MG PO; +DOXEPIN HCL10 MG PO; +Lidocaine Hydrochloride 30 ML VIAL ONE; +ROSUVASTATIN CA10 MG PO; +SEROQUEL50 MG PO
[2024-02-11 07:11] VITALS: BP 110/74
[2024-02-11 07:45] VITALS: BP 126/64
[2024-02-11 07:50] VITALS: BP 125/64
[2024-02-11 07:55] VITALS: BP 130/102
[2024-02-11 08:01] VITALS: BP 126/64
== END ==
LOC: SDC 02-07 11:00
PROVIDERS: ATTEND Orthopaedic Surgery
DX: M16.11 Unilateral primary osteoarthritis, right hip (principal); E78.00 Pure hypercholesterolemia, unspecified; F32.A Depression, unspecified; F17.210 Nicotine dependence, cigarettes, uncomplicated; Z90.710 Acquired absence of both cervix and uterus; Z85.828 Personal history of other malignant neoplasm of skin; Z98.890 Other specified postprocedural states; Z83.3 Family history of diabetes mellitus; Z82.49 Family history of ischemic heart disease and other diseases of the circulatory system

== ENCOUNTER → 2024-05-14 | Day surgery (SDC) | payer MEDICARE, MEDICAID ==
[~2024-05-14] MED LIST changes: +BUPIVACAINE 0.25% 10 ML VIAL IJ ONE; -BUPIVACAINE 0.5% 30 ML IV ONE; +Lidocaine Hydrochloride 2 ML AMP IA ONE
[2024-05-14 07:12] VITALS: BP 142/57
[2024-05-14 07:35] VITALS: BP 130/71
[2024-05-14 07:40] VITALS: BP 137/69
[2024-05-14 07:45] VITALS: BP 141/75
[2024-05-14 07:50] VITALS: BP 127/73
[2024-05-14 07:52] VITALS: BP 141/51
== END | disposition home or self-care (01) ==
LOC: SDC 05-11 08:45
PROVIDERS: ATTEND Orthopaedic Surgery
DX: M16.11 Unilateral primary osteoarthritis, right hip (principal); Z79.899 Other long term (current) drug therapy

== ENCOUNTER → 2024-07-13 | Outpatient (CLI) | payer MEDICARE, MEDICAID ==
[~2024-07-13] MED LIST changes: -BUPIVACAINE 0.25% 10 ML VIAL IJ ONE; -BUPIVACAINE 0.25% 10 ML VIAL ONE; -Betamethasone ACE/Betamethas 30 MG/5 ML VIAL IJ ONE; -Lidocaine Hydrochloride 2 ML AMP IA ONE; -Lidocaine Hydrochloride 30 ML VIAL ONE
== END | disposition home or self-care (01) ==
LOC: MAMMO 04-30 10:30
PROVIDERS: ATTEND Family Medicine
DX: Z12.31 Encounter for screening mammogram for malignant neoplasm of breast (principal)

== ENCOUNTER → 2024-10-07 | Outpatient (CLI) | payer MEDICARE, MEDICAID | END | disposition home or self-care (01) | LOC: ORTHO 03:31 | PROVIDERS: ATTEND Orthopaedic Surgery | DX: M19.011 Primary osteoarthritis, right shoulder (principal); M25.511 Pain in right shoulder ==

== ENCOUNTER → 2024-12-02 | Day surgery (SDC) | payer MEDICARE, MEDICAID ==
[~2024-12-02] MED LIST changes: +IOHEXOL 240 MG/ML 10 ML SOL IJ ONE; +IOHEXOL 240 MG/ML 10 ML SOL ONE; +Lidocaine Hydrochloride 5 ML AMP IJ ONE; +Lidocaine Hydrochloride 5 ML AMP ONE; +SODIUM BICARBONATE 4.2% 5 ML VIAL IJ ONE; +SODIUM BICARBONATE 4.2% 5 ML VIAL ONE; +SODIUM CHLORIDE 0.9% 10 ML VIAL IJ ONE; +SODIUM CHLORIDE 0.9% 10 ML VIAL ONE
== END | disposition home or self-care (01) ==
PROVIDERS: ATTEND Orthopaedic Surgery
DX: M75.101 Unspecified rotator cuff tear or rupture of right shoulder, not specified as traumatic (principal); M75.41 Impingement syndrome of right shoulder

== ENCOUNTER 2025-01-07 02:27 | Observation (INO) | payer MEDICARE, MEDICAID ==
[2025-01-05 17:32] LABS: BASO % 0.5 % (0.0-1.0); EOS # 0.1 10*3/uL (0.0-0.4); EOS % 1.4 % (1.0-4.0); HEMATOCRIT 41.9 % (37.0-47.0); MEAN CELL VOLUME 89.9 fl (81.0-99.0); MEAN CORPUSCULAR HGB 29.4 pg (27.0-31.0); MEAN CORPUSCULAR HGB CONC 32.7 g/dl (33.0-37.0); MEAN PLATELET VOLUME 9.6 fl (9.6-12.3); MONO # 0.5 10*3/uL (0.1-1.0); MONO % 6.3 % (3.0-9.0); NEUT # 5.1 10*3/uL (2.3-7.9); NEUT % 61.1 % (47.0-73.0); PLATELET COUNT AUTOMATED 304 10*3/uL (130-400); RED BLOOD COUNT 4.66 10*6/uL (4.10-5.10); RED CELL DISTRI WIDTH 13.2 % (0-14.5); WHITE BLOOD COUNT 8.4 10*3/uL (4.8-10.8)
[2025-01-05 18:22] LABS: BUN 10 mg/dl (9-23); CHLORIDE 106 mmol/L (98-107); POTASSIUM 3.9 mmol/L (3.4-5.1)
[2025-01-07] VITALS (8 sets, daily range): BP systolic 132–172; BP diastolic 73–88
[~2025-01-07] VITALS: Ht 157.4 cm; Wt 106.4 kg
[~2025-01-07 02:27] MED LIST changes: -IOHEXOL 240 MG/ML 10 ML SOL IJ ONE; -IOHEXOL 240 MG/ML 10 ML SOL ONE; -Lidocaine Hydrochloride 5 ML AMP IJ ONE; -Lidocaine Hydrochloride 5 ML AMP ONE; +MELATONIN10 M4 PO; -SODIUM BICARBONATE 4.2% 5 ML VIAL IJ ONE; -SODIUM BICARBONATE 4.2% 5 ML VIAL ONE; -SODIUM CHLORIDE 0.9% 10 ML VIAL IJ ONE; -SODIUM CHLORIDE 0.9% 10 ML VIAL ONE
[2025-01-07] MEDS ORDERED: ceFAZolin sodium 2GM/20ML IV ONE (08:40)
[2025-01-07] MEDS ORDERED: Lactated Ringer's Solution 1,000 ML IV SCH (08:40)
[2025-01-07] MEDS ORDERED: ceFAZolin sodium/sodium chlor 20 ML IV ONE (08:50)
[2025-01-07] MEDS ORDERED: Lactated Ringer's Solution 1,000 ML IV ONE (08:50)
[2025-01-07] MEDS ORDERED: Ropivacaine Hydrochloride 5 MG/ML 20 ML AMP IJ ONE (08:56)
[2025-01-07] MEDS ORDERED: Lidocaine Hydrochloride 2 ML IV ONE (08:58)
[2025-01-07] MEDS ORDERED: EPINEPHrine Hydrochloride 1 MG/ML AMP ONE (09:47)
[2025-01-07] MEDS ORDERED: OXYCODONE-ACET1 EACH PO (10:10)
[2025-01-07] MEDS ORDERED: Bupivacaine Hydrochloride/Ep2 30 ML VIAL ONE (10:53)
[2025-01-07] MEDS ORDERED: Albuterol Sulf/Ipratropium 3 ML VIAL NEB ONE ×2 (12:30→13:18)
[2025-01-07] MEDS ORDERED: Ondansetron Hydrochloride 4 MG/2 ML VIAL IV ONE (15:28)
[2025-01-07] MEDS ORDERED: Esmolol Hydrochloride 100 MG/10 ML VIAL IV ONE (15:28)
[2025-01-07] MEDS ORDERED: Dexamethasone Sodium Phospha 4 MG/ML VIAL IV ONE (15:28)
[2025-01-07] MEDS ORDERED: Midazolam Hydrochloride 2 MG/2 ML VIAL IV ONE (15:28)
[2025-01-07] MEDS ORDERED: PROPOFOL 200 MG/20 ML VIAL IV ONE (15:28)
[2025-01-07] MEDS ORDERED: ROCURONIUM BROMIDE 50 MG/5 ML SYRINGE IV ONE (15:28)
[2025-01-07] MEDS ORDERED: SUGAMMADEX SODIUM 200 MG/2 ML VIAL IV ONE (15:28)
[2025-01-07] MEDS ORDERED: SEVOFLURANE 250 ML BOT INH ONE (15:28)
[2025-01-07] MEDS ORDERED: Labetalol Hydrochloride 20 MG/4 ML SYR IV ONE (15:28)
[2025-01-07] MEDS ORDERED: TEMAZEPAM 15 MG CAP PO PRN (16:10)
[2025-01-07] MEDS ORDERED: ACETAMINOPHEN 325 MG TAB PO PRN (16:10)
[2025-01-07] MEDS ORDERED: BISACODYL 10 MG SUPP R PRN (16:10)
[2025-01-07] MEDS ORDERED: Acetaminophen/Hydrocodone 5 MG/325 MG TABLET PO PRN (16:10)
[2025-01-07] MEDS ORDERED: BISACODYL 5 MG TAB PO PRN (16:10)
[2025-01-07] MEDS ORDERED: ACETAMINOPHEN 650 MG SUPP R PRN (16:10)
[2025-01-07] MEDS ORDERED: Magnesium Hydroxide 30 ML UDC PO PRN (16:10)
[2025-01-07] MEDS ORDERED: Ondansetron Hydrochloride 4 MG/2 ML VIAL IV PRN (16:10)
[2025-01-07] MEDS ORDERED: Albuterol Sulf/Ipratropium 3 ML VIAL NEB PRN (17:00)
[2025-01-07] MEDS ORDERED: INCRUSE ELLIPTA INH SCH (21:45)
[2025-01-07] MEDS ORDERED: CARIPRAZINE HCL 3 MG CAPSULE PO SCH (21:50)
[2025-01-07] MEDS ORDERED: hydrOXYzine pamoate 25 MG CAP PO SCH ×2 (21:55→22:00)
[2025-01-07] MEDS ORDERED: Albuterol Sulf/Ipratropium 3 ML VIAL NEB SCH (22:00)
[2025-01-07] MEDS ORDERED: Rosuvastatin Calcium 10 MG TABLET PO SCH (22:00)
[2025-01-07] MEDS ORDERED: GABAPENTIN 300 MG CAP PO SCH (22:00)
[2025-01-07] MEDS ORDERED: cloNIDine Hydrochloride 0.1 MG TAB PO SCH (22:00)
[2025-01-07] MEDS ORDERED: BUDESONIDE 0.5 MG AMP NEB SCH (22:00)
[2025-01-07] MEDS ORDERED: rOPINIRole Hydrochloride 1 MG TAB PO SCH (22:00)
[2025-01-07] MEDS ORDERED: QUEtiapine FUMARATE 50 MG TAB PO SCH (22:00)
[2025-01-08] VITALS: BP 150/91
[2025-01-08 06:21] LABS: BASO % 0.1 % (0.0-1.0); HEMATOCRIT 39.4 % (37.0-47.0); MEAN CELL VOLUME 90.6 fl (81.0-99.0); MEAN CORPUSCULAR HGB 29.4 pg (27.0-31.0); MEAN CORPUSCULAR HGB CONC 32.5 g/dl (33.0-37.0); MEAN PLATELET VOLUME 9.9 fl (9.6-12.3); MONO # 0.7 10*3/uL (0.1-1.0); MONO % 5.3 % (3.0-9.0); NEUT # 10.3 10*3/uL (2.3-7.9); NEUT % 75.1 % (47.0-73.0); PLATELET COUNT AUTOMATED 295 10*3/uL (130-400); RED BLOOD COUNT 4.35 10*6/uL (4.10-5.10); RED CELL DISTRI WIDTH 13.2 % (0-14.5); WHITE BLOOD COUNT 13.7 10*3/uL (4.8-10.8)
[2025-01-08 06:22] LABS: ALKALINE PHOSPHATASE 72 U/L (46-116); BUN 14 mg/dl (9-23); CHLORIDE 104 mmol/L (98-107); CHOLESTEROL 148 mg/dL (<200); FREE T4 1.48 ng/dl (0.89-1.76); LDL CHOLESTEROL 76 mg/dL (9-159); SGPT/ALT 27 U/L (5-49); TOTAL PROTEIN 6.9 gm/dL (6.0-8.0); TRIGLYCERIDES 129 mg/dl (<150)
[2025-01-08] MEDS ORDERED: OMEPRAZOLE 20 MG CAP PO SCH (07:30)
[2025-01-08 08:00] VITALS: BP 149/70
[2025-01-08 08:21] LABS: VITAMIN D, 25-HYDROXY 15.2 ng/mL (30-100)
[2025-01-08] MEDS ORDERED: CITALOPRAM 20 MG TAB PO SCH (10:00)
[2025-01-08] MEDS ORDERED: BREO ELLIPTA INH SCH (10:00)
[2025-01-08] MEDS ORDERED: Cholecalciferol 2,000 UNIT TABLET (50 MCG) PO SCH (10:00)
[2025-01-08] MEDS ORDERED: LORATADINE 10 MG TAB PO SCH (10:00)
[2025-01-08 12:00] VITALS: BP 148/92
== END 2025-01-08 15:04 | disposition home or self-care (01) ==
LOC: SDC 02:27 → 4E 15:31
PROVIDERS: Orthopaedic Surgery; Student in an Organized Health Care Education/Training Program; ADMIT Internal Medicine; ATTEND Internal Medicine
DX: M75.101 Unspecified rotator cuff tear or rupture of right shoulder, not specified as traumatic (principal); M75.41 Impingement syndrome of right shoulder; J44.9 Chronic obstructive pulmonary disease, unspecified; F41.9 Anxiety disorder, unspecified; E78.2 Mixed hyperlipidemia; J96.01 Acute respiratory failure with hypoxia; G89.18 Other acute postprocedural pain; C56.9 Malignant neoplasm of unspecified ovary; M19.90 Unspecified osteoarthritis, unspecified site; Z98.890 Other specified postprocedural states; Z79.899 Other long term (current) drug therapy

== ENCOUNTER → 2025-01-22 | Outpatient (CLI) | payer MEDICARE, MEDICAID ==
[~2025-01-22] MED LIST changes: +OXYCODONE-ACET1 EACH PO
== END | disposition home or self-care (01) ==
LOC: ORTHO 01:22
PROVIDERS: ATTEND Orthopaedic Surgery
DX: M19.011 Primary osteoarthritis, right shoulder (principal); M25.711 Osteophyte, right shoulder; M75.101 Unspecified rotator cuff tear or rupture of right shoulder, not specified as traumatic

== ENCOUNTER → 2025-03-29 | Outpatient (CLI) | payer MEDICARE, MEDICAID | END | disposition home or self-care (01) | LOC: ORTHO 02:36 | PROVIDERS: ATTEND Orthopaedic Surgery | DX: M19.022 Primary osteoarthritis, left elbow (principal); M25.722 Osteophyte, left elbow; M25.522 Pain in left elbow ==

== ENCOUNTER 2025-06-08 07:22 | Emergency (ER) | payer MEDICARE, MEDICAID ==
[~2025-06-08] VITALS: Ht 157.4 cm; Wt 104.3 kg
[2025-06-08] MEDS ORDERED: AZITHROMYCIN 250 MG TAB PO ONE (07:35)
[2025-06-08] MEDS ORDERED: MAGNESIUM SULFATE 50 ML IV ONE (07:35)
[2025-06-08 07:52] LABS: BASO # 0.0 10*3/uL (0.0-0.1); BASO % 0.4 % (0.0-1.0); EOS # 0.3 10*3/uL (0.0-0.4); EOS % 3.3 % (1.0-4.0); MEAN CELL VOLUME 90.0 fl (81.0-99.0); MEAN CORPUSCULAR HGB 29.0 pg (27.0-31.0); MEAN PLATELET VOLUME 9.4 fl (9.6-12.3); MONO # 0.5 10*3/uL (0.1-1.0); MONO % 5.5 % (3.0-9.0); NEUT # 5.4 10*3/uL (2.3-7.9); NEUT % 59.6 % (47.0-73.0); NUCLEATED RED BLOOD CELL 0.0 % (0.0-0.0); NUCLEATED RED BLOOD CELL 0.0 10*3/uL (0.0-0.0); PLATELET COUNT AUTOMATED 238 10*3/uL (130-400); RED CELL DISTRI WIDTH 13.7 % (0-14.5)
[2025-06-08 08:11] LABS: BUN 6 mg/dl (9-23)
[2025-06-08] MEDS ORDERED: AVPAK AZITHROM250 M1 PO (08:46)
[2025-06-08] MEDS ORDERED: PREDNISONE20 M1 PO (08:46)
[2025-06-08] MEDS ORDERED: LASIX20 MG PO (08:46)
== END 2025-06-08 08:51 | disposition home or self-care (01) ==
LOC: ED 07:22
PROVIDERS: Emergency Medicine
DX: J44.1 Chronic obstructive pulmonary disease with (acute) exacerbation (principal); F32.A Depression, unspecified; E78.00 Pure hypercholesterolemia, unspecified; F17.210 Nicotine dependence, cigarettes, uncomplicated; F12.90 Cannabis use, unspecified, uncomplicated; Z90.710 Acquired absence of both cervix and uterus; Z98.890 Other specified postprocedural states

== ENCOUNTER 2025-06-14 19:59 | Emergency (ER) | payer MEDICARE, MEDICAID ==
[~2025-06-14] VITALS: Wt 104.3 kg
[~2025-06-14 19:59] MED LIST changes: +AVPAK AZITHROM250 M1 PO; +LASIX20 MG PO; +PREDNISONE20 M1 PO
[2025-06-14 20:50] LABS: BASO # 0.0 10*3/uL (0.0-0.1); BASO % 0.3 % (0.0-1.0); EOS # 0.1 10*3/uL (0.0-0.4); EOS % 1.1 % (1.0-4.0); MEAN CELL VOLUME 90.6 fl (81.0-99.0); MEAN CORPUSCULAR HGB 28.8 pg (27.0-31.0); MEAN PLATELET VOLUME 9.0 fl (9.6-12.3); MONO # 0.7 10*3/uL (0.1-1.0); MONO % 5.4 % (3.0-9.0); NEUT # 8.1 10*3/uL (2.3-7.9); NEUT % 66.0 % (47.0-73.0); NUCLEATED RED BLOOD CELL 0.0 % (0.0-0.0); NUCLEATED RED BLOOD CELL 0.0 10*3/uL (0.0-0.0); PLATELET COUNT AUTOMATED 311 10*3/uL (130-400); RED CELL DISTRI WIDTH 13.4 % (0-14.5)
[2025-06-14 21:10] LABS: BUN 16.0 mg/dl (9-23)
[2025-06-14] MEDS ORDERED: PREDNISONE20 M1 PO (23:32)
[2025-06-14] MEDS ORDERED: ZITHROMAX250 MG PO (23:33)
== END 2025-06-15 00:01 | disposition home or self-care (01) ==
LOC: ED 19:59
PROVIDERS: Internal Medicine
DX: J44.1 Chronic obstructive pulmonary disease with (acute) exacerbation (principal); N17.9 Acute kidney failure, unspecified; I12.9 Hypertensive chronic kidney disease with stage 1 through stage 4 chronic kidney disease, or unspecified chronic kidney disease; N18.9 Chronic kidney disease, unspecified; D72.829 Elevated white blood cell count, unspecified; E87.29 Other acidosis; E78.5 Hyperlipidemia, unspecified; F17.200 Nicotine dependence, unspecified, uncomplicated; Z20.822 Contact with and (suspected) exposure to COVID-19; Z53.9 Procedure and treatment not carried out, unspecified reason; Z96.653 Presence of artificial knee joint, bilateral; Z98.890 Other specified postprocedural states; Z90.711 Acquired absence of uterus with remaining cervical stump

== ENCOUNTER 2025-06-19 15:05 | Inpatient (IN) | payer MEDICARE, MEDICAID ==
[~2025-06-19] VITALS: Ht 157.5 cm; Wt 108.0 kg
[2025-06-19] MEDS ORDERED: MAGNESIUM SULFATE 50 ML IV ONE (15:10)
[2025-06-19] MEDS ORDERED: AZITHROMYCIN 250 MG TAB PO ONE (15:10)
[2025-06-19 15:13] VITALS: BP 153/81
[2025-06-19 15:34] LABS: BASO # 0.0 10*3/uL (0.0-0.1); BASO % 0.2 % (0.0-1.0); EOS # 0.0 10*3/uL (0.0-0.4); EOS % 0.1 % (1.0-4.0); MEAN CELL VOLUME 90.1 fl (81.0-99.0); MEAN CORPUSCULAR HGB 29.1 pg (27.0-31.0); MEAN PLATELET VOLUME 9.2 fl (9.6-12.3); MONO # 0.2 10*3/uL (0.1-1.0); MONO % 1.0 % (3.0-9.0); NEUT # 12.9 10*3/uL (2.3-7.9); NEUT % 87.8 % (47.0-73.0); NUCLEATED RED BLOOD CELL 0.0 % (0.0-0.0); NUCLEATED RED BLOOD CELL 0.0 10*3/uL (0.0-0.0); PLATELET COUNT AUTOMATED 312 10*3/uL (130-400); RED CELL DISTRI WIDTH 13.6 % (0-14.5)
[2025-06-19 15:52] LABS: BUN 14.0 mg/dl (9-23)
[2025-06-19] MEDS ORDERED: BISACODYL 5 MG TAB PO PRN (17:00)
[2025-06-19] MEDS ORDERED: Ondansetron Hydrochloride 4 MG/2 ML VIAL IV PRN (17:00)
[2025-06-19] MEDS ORDERED: Acetaminophen/Hydrocodone 5 MG/325 MG TABLET PO PRN (17:00)
[2025-06-19] MEDS ORDERED: TEMAZEPAM 15 MG CAP PO PRN (17:00)
[2025-06-19] MEDS ORDERED: ACETAMINOPHEN 325 MG TAB PO PRN (17:00)
[2025-06-19] MEDS ORDERED: Albuterol Sulf/Ipratropium 3 ML VIAL NEB SCH (17:10)
[2025-06-19 19:04] VITALS: BP 148/84
[2025-06-19 19:52] LABS: BILIRUBIN Negative (Negative); BLOOD Negative (Negative); CLARITY Clear (Clear); COLOR Yellow (Yellow); KETONE Negative (Negative); LEUKO ESTERASE Negative (Negative); NITRITE Positive (Negative); PH 7.0 (4.5-8.0); SPECIFIC GRAVITY <= 1.005 (1.001-1.030); UROBILINOGEN 1.0 E.U./dl (0.0-1.0)
[2025-06-19 20:05] LABS: BACTERIA 3+; RBC 0-2 rbc/hpf (0-2)
[2025-06-19 20:50] VITALS: BP 145/70
[2025-06-19] MEDS ORDERED: ATORVASTATIN CALCIUM 20 MG TAB PO SCH (22:00)
[2025-06-19] MEDS ORDERED: GABAPENTIN 300 MG CAP PO SCH (22:00)
[2025-06-19] MEDS ORDERED: Doxepin Hydrochloride 25 MG CAP PO SCH (22:00)
[2025-06-19] MEDS ORDERED: Cyclobenzaprine Hydrochlorid 10 MG TAB PO SCH (22:00)
[2025-06-20] VITALS: BP 157/64
[2025-06-20] MEDS ORDERED: Benzocaine/Menthol 1 LOZ LOZENGE PO PRN (03:35)
[2025-06-20 06:13] LABS: BASO # 0.0 10*3/uL (0.0-0.1); BASO % 0.1 % (0.0-1.0); EOS # 0.0 10*3/uL (0.0-0.4); EOS % 0.0 % (1.0-4.0); MEAN CELL VOLUME 88.6 fl (81.0-99.0); MEAN CORPUSCULAR HGB 28.4 pg (27.0-31.0); MEAN PLATELET VOLUME 9.7 fl (9.6-12.3); MONO # 0.7 10*3/uL (0.1-1.0); MONO % 4.0 % (3.0-9.0); NEUT # 12.5 10*3/uL (2.3-7.9); NEUT % 76.2 % (47.0-73.0); NUCLEATED RED BLOOD CELL 0.0 % (0.0-0.0); NUCLEATED RED BLOOD CELL 0.0 10*3/uL (0.0-0.0); PLATELET COUNT AUTOMATED 331 10*3/uL (130-400); RED CELL DISTRI WIDTH 13.5 % (0-14.5)
[2025-06-20 06:16] LABS: ACT PARTIAL THROMBO TIME 23.0 SECONDS (20.0-32.1)
[2025-06-20 07:54] LABS: BUN 14 mg/dl (9-23); LDL CHOLESTEROL 63 mg/dL (9-159); SGPT/ALT 21 U/L (5-49)
[2025-06-20 08:00] VITALS: BP 153/65
[2025-06-20] MEDS ORDERED: LORATADINE 10 MG TAB PO SCH (10:00)
[2025-06-20] MEDS ORDERED: Albuterol Sulf/Ipratropium 3 ML VIAL NEB SCH ×2 (11:00→17:10)
[2025-06-20 12:00] VITALS: BP 139/64
[2025-06-20] MEDS ORDERED: NYSTATIN 500,000 UNITS/5 ML UDC PO SCH (14:00)
[2025-06-20] MEDS ORDERED: AZITHROMYCIN 250 ML IV SCH (15:00)
[2025-06-20 16:00] VITALS: BP 167/78
[2025-06-20 20:00] VITALS: BP 158/65
[2025-06-21] VITALS: BP 164/65
[2025-06-21] MEDS ORDERED: CAPLYTA21 M1 PO (02:36)
[2025-06-21] MEDS ORDERED: AMITRIPTYLINE50 MG PO (02:37)
[2025-06-21] MEDS ORDERED: AMLODIPINE BESYL5 MG PO (02:39)
[2025-06-21] MEDS ORDERED: OMEPRAZOLE40 MG PO (02:40)
[2025-06-21 06:23] LABS: BASO # 0.0 10*3/uL (0.0-0.1); BASO % 0.1 % (0.0-1.0); EOS # 0.0 10*3/uL (0.0-0.4); EOS % 0.0 % (1.0-4.0); MEAN CELL VOLUME 89.5 fl (81.0-99.0); MEAN CORPUSCULAR HGB 28.8 pg (27.0-31.0); MEAN PLATELET VOLUME 9.7 fl (9.6-12.3); MONO # 0.3 10*3/uL (0.1-1.0); MONO % 2.0 % (3.0-9.0); NEUT # 11.5 10*3/uL (2.3-7.9); NEUT % 83.6 % (47.0-73.0); NUCLEATED RED BLOOD CELL 0.0 % (0.0-0.0); NUCLEATED RED BLOOD CELL 0.0 10*3/uL (0.0-0.0); PLATELET COUNT AUTOMATED 304 10*3/uL (130-400); RED CELL DISTRI WIDTH 13.6 % (0-14.5)
[2025-06-21 06:25] LABS: BUN 17 mg/dl (9-23); SGPT/ALT 21 U/L (5-49)
[2025-06-21 08:00] VITALS: BP 140/43
[2025-06-21] MEDS ORDERED: FOLIC ACID 1 MG TAB PO SCH (11:15)
[2025-06-21 12:00] VITALS: BP 153/73
[2025-06-21 15:49] VITALS: BP 163/69
[2025-06-21 20:00] VITALS: BP 158/99
[2025-06-22] VITALS: BP 159/60
[2025-06-22 06:25] LABS: BASO # 0.0 10*3/uL (0.0-0.1); BASO % 0.1 % (0.0-1.0); EOS # 0.0 10*3/uL (0.0-0.4); EOS % 0.1 % (1.0-4.0); MEAN CELL VOLUME 90.9 fl (81.0-99.0); MEAN CORPUSCULAR HGB 29.0 pg (27.0-31.0); MEAN PLATELET VOLUME 9.8 fl (9.6-12.3); MONO # 0.9 10*3/uL (0.1-1.0); MONO % 4.7 % (3.0-9.0); NEUT # 15.2 10*3/uL (2.3-7.9); NEUT % 81.1 % (47.0-73.0); NUCLEATED RED BLOOD CELL 0.0 % (0.0-0.0); NUCLEATED RED BLOOD CELL 0.0 10*3/uL (0.0-0.0); PLATELET COUNT AUTOMATED 286 10*3/uL (130-400); RED CELL DISTRI WIDTH 13.7 % (0-14.5)
[2025-06-22 07:39] LABS: BUN 19 mg/dl (9-23); FREE T4 1.51 ng/dl (0.89-1.76)
[2025-06-22 08:00] VITALS: BP 118/88
[2025-06-22] MEDS ORDERED: Amitriptyline Hydrochloride 50 MG TAB PO SCH (10:00)
[2025-06-22 12:00] VITALS: BP 162/86
[2025-06-22 16:00] VITALS: BP 104/48; BP 158/79
[2025-06-22 20:00] VITALS: BP 178/81
[2025-06-23] VITALS: BP 168/74
[2025-06-23 07:06] LABS: BASO # 0.0 10*3/uL (0.0-0.1); BASO % 0.1 % (0.0-1.0); EOS # 0.0 10*3/uL (0.0-0.4); EOS % 0.0 % (1.0-4.0); MEAN CELL VOLUME 89.3 fl (81.0-99.0); MEAN CORPUSCULAR HGB 28.3 pg (27.0-31.0); MEAN PLATELET VOLUME 9.9 fl (9.6-12.3); MONO # 0.6 10*3/uL (0.1-1.0); MONO % 3.7 % (3.0-9.0); NEUT # 12.9 10*3/uL (2.3-7.9); NEUT % 83.8 % (47.0-73.0); NUCLEATED RED BLOOD CELL 0.0 % (0.0-0.0); NUCLEATED RED BLOOD CELL 0.0 10*3/uL (0.0-0.0); PLATELET COUNT AUTOMATED 299 10*3/uL (130-400); RED CELL DISTRI WIDTH 13.7 % (0-14.5)
[2025-06-23 07:17] LABS: BUN 25 mg/dl (9-23)
[2025-06-23 08:00] VITALS: BP 164/84
[2025-06-23 12:00] VITALS: BP 166/73
[2025-06-23] MEDS ORDERED: NYST SUSP PO (15:09)
[2025-06-23] MEDS ORDERED: NATURE'S BLEND F1 MG PO (15:09)
[2025-06-23] MEDS ORDERED: PREDNISONE10 MG PO (15:09)
[2025-06-23] MEDS ORDERED: DOXYCYCLINE HY100 M3 PO (15:09)
[2025-06-23] MEDS ORDERED: Nystatin 100,000 UNI PO (15:09)
== END 2025-06-23 16:10 | disposition home or self-care (01) | DRG 871 ==
LOC: ED 15:05 → 5E 16:20 → EDHOLD 16:20 → 5E 17:47
PROVIDERS: Emergency Medicine; Student in an Organized Health Care Education/Training Program; ADMIT Internal Medicine; ATTEND Internal Medicine
PROC: 5A09357 Assistance with Respiratory Ventilation, Less than 24 Consecutive Hours, Continuous Positive Airway Pressure (ICD-10-PCS; principal; 2025-06-21)
PROC: 5A09357 Assistance with Respiratory Ventilation, Less than 24 Consecutive Hours, Continuous Positive Airway Pressure (ICD-10-PCS; 2025-06-23)
DX: A41.9 Sepsis, unspecified organism (principal); J96.01 Acute respiratory failure with hypoxia; J44.1 Chronic obstructive pulmonary disease with (acute) exacerbation; N39.0 Urinary tract infection, site not specified; J44.0 Chronic obstructive pulmonary disease with (acute) lower respiratory infection; B37.0 Candidal stomatitis; Z68.41 Body mass index [BMI] 40.0-44.9, adult; J98.4 Other disorders of lung; J20.9 Acute bronchitis, unspecified; Z20.822 Contact with and (suspected) exposure to COVID-19; F17.210 Nicotine dependence, cigarettes, uncomplicated; I12.9 Hypertensive chronic kidney disease with stage 1 through stage 4 chronic kidney disease, or unspecified chronic kidney disease; G47.33 Obstructive sleep apnea (adult) (pediatric); E78.5 Hyperlipidemia, unspecified; F32.A Depression, unspecified; E55.9 Vitamin D deficiency, unspecified; R73.9 Hyperglycemia, unspecified; R13.10 Dysphagia, unspecified; E66.01 Morbid (severe) obesity due to excess calories; F41.1 Generalized anxiety disorder; G25.81 Restless legs syndrome; I34.1 Nonrheumatic mitral (valve) prolapse; F12.10 Cannabis abuse, uncomplicated; N18.31 Chronic kidney disease, stage 3a; Z96.653 Presence of artificial knee joint, bilateral; Z79.899 Other long term (current) drug therapy; Z79.2 Long term (current) use of antibiotics; Z79.01 Long term (current) use of anticoagulants; Z90.710 Acquired absence of both cervix and uterus; Z80.6 Family history of leukemia; Z82.3 Family history of stroke; Z83.3 Family history of diabetes mellitus; Z82.49 Family history of ischemic heart disease and other diseases of the circulatory system; Z71.6 Tobacco abuse counseling; Z80.8 Family history of malignant neoplasm of other organs or systems; Z85.43 Personal history of malignant neoplasm of ovary

== ENCOUNTER 2025-07-06 17:10 | Emergency (ER) | payer MEDICARE, MEDICAID ==
[~2025-07-06] VITALS: Wt 108.9 kg
[~2025-07-06 17:10] MED LIST changes: +AMITRIPTYLINE50 MG PO; +AMLODIPINE BESYL5 MG PO; +CAPLYTA21 M1 PO; +DOXYCYCLINE HY100 M3 PO; +NATURE'S BLEND F1 MG PO; +NYST SUSP PO; +Nystatin 100,000 UNI PO; +OMEPRAZOLE40 MG PO; +PREDNISONE10 MG PO
[2025-07-06] MEDS ORDERED: SODIUM CHLORIDE 0.9% 100 ML BAG IV ONE (18:25)
[2025-07-06] MEDS ORDERED: IOHEXOL 350 MG/ML 100 ML VIAL IV ONE (18:25)
[2025-07-06 18:26] LABS: BASO # 0.0 10*3/uL (0.0-0.1); BASO % 0.3 % (0.0-1.0); EOS # 0.1 10*3/uL (0.0-0.4); EOS % 1.2 % (1.0-4.0); MEAN CELL VOLUME 88.0 fl (81.0-99.0); MEAN CORPUSCULAR HGB 28.6 pg (27.0-31.0); MEAN PLATELET VOLUME 9.8 fl (9.6-12.3); MONO # 0.5 10*3/uL (0.1-1.0); MONO % 4.8 % (3.0-9.0); NEUT # 8.3 10*3/uL (2.3-7.9); NEUT % 73.7 % (47.0-73.0); NUCLEATED RED BLOOD CELL 0.0 % (0.0-0.0); NUCLEATED RED BLOOD CELL 0.0 10*3/uL (0.0-0.0); PLATELET COUNT AUTOMATED 144 10*3/uL (130-400); RED CELL DISTRI WIDTH 13.6 % (0-14.5)
[2025-07-06 18:44] LABS: BUN 9 mg/dl (9-23)
[2025-07-06 18:53] LABS: BILIRUBIN Negative (Negative); BLOOD Negative (Negative); CLARITY Clear (Clear); COLOR Yellow (Yellow); KETONE Negative (Negative); LEUKO ESTERASE Negative (Negative); NITRITE Negative (Negative); PH 7.0 (4.5-8.0); SPECIFIC GRAVITY <= 1.005 (1.001-1.030); UROBILINOGEN 0.2 E.U./dl (0.0-1.0)
[2025-07-06] MEDS ORDERED: XARE15TA PO (20:18)
== END 2025-07-06 20:34 | disposition home or self-care (01) ==
LOC: ED 17:10
PROVIDERS: Nurse Practitioner Family
DX: I82.442 Acute embolism and thrombosis of left tibial vein (principal); M79.662 Pain in left lower leg; J44.9 Chronic obstructive pulmonary disease, unspecified; F32.A Depression, unspecified; E78.00 Pure hypercholesterolemia, unspecified; F12.90 Cannabis use, unspecified, uncomplicated; F17.200 Nicotine dependence, unspecified, uncomplicated; Z90.710 Acquired absence of both cervix and uterus; Z98.890 Other specified postprocedural states